=== PATIENT | male | born 1945 | race Caucasian/White ===

== ENCOUNTER → 2023-04-02 10:30 | Outpatient (REF) | payer MEDICARE, SELFPAY ==
[2023-04-02 12:30] LABS: PSA, Total - Diagnostic < 0.06 ng/ml (0.0-4.0)
[2023-04-02 12:58] LABS: Testosterone, Total 23.8 ng/dl (72-623)
== END ==
LOC: REG 10:30
PROVIDERS: ATTENDING PHYSICIAN Radiology Radiation Oncology; FAMILY PHYSICIAN Student in an Organized Health Care Education/Training Program
DX: C61 Malignant neoplasm of prostate (principal)
CPT/HCPCS: 36415; 84153; 84403

== ENCOUNTER → 2023-05-25 15:27 | Outpatient (REF) | payer MEDICARE, SELFPAY | LOC: MRI 3T 15:27 | PROVIDERS: ATTENDING PHYSICIAN Physician Assistant; FAMILY PHYSICIAN Student in an Organized Health Care Education/Training Program | DX: N28.89 Other specified disorders of kidney and ureter (principal) | CPT/HCPCS: 74183; A9575 ==

== ENCOUNTER 2023-06-26 06:46 | Emergency (ER) | payer MEDICARE, SELFPAY ==
[2023-06-26] VITALS (25 sets, daily range): BP systolic 131–160; BP diastolic 69–99; BMI 31.2
--- NOTE | 2023-06-26 07:08 | ED.GENMED ---
History of Present Illness
General
Chief Complaint: Musculo-Skeletal Complaint
Source: patient
Time Seen by Provider: 06/26/23 07:07
Travel History
Have you had any contact with someone who has COVID-19?: No
Do you have any symptoms of coronavirus? Fever > 100 degrees, chills, cough, shortness of breath, sore throat, loss of taste or smell, muscle aches, or headache?: No
History of Present Illness
History of Present Illness:
78-year-old male presents to the emergency room complaining of right shoulder pain. Patient states that he was awoken from sleep by a lower extremity cramp. When he got out of bed to try to 'work it out' he lost his balance and fell. He is
shoulder pain. He denies taking any anticoagulants. No other injuries.
Past History
Past History
ED Past Medical History: CAD (stent 2015), Cancer (prostate finihed XRT 04/22/19), HTN and Hypercholesterolemia
ED Past Surgical History: Cardiac (cath w/ stent)
Social History
Tobacco: Non-smoker
Personal:
Living: with family
Employment: Retired
Phy Exam
Physical Exam
Physical Exam:
General: Awake, Alert, Oriented X3. No acute distress.
Vitals: unremarkable
Head: Atraumatic
Eyes: Pupils equal, EOMI
Throat: Airway intact, no exudates
Neck: Trachea midline
Lungs: Clear and equal b/l
Heart: Regular rate, no murmurs
Abd: Soft, Nontender, No pulsatile mass
Neuro: Nonfocal
Skin: Warm, dry, no rash
Extremities: pulses equal b/l, deformity right shoulder which appears to be dislocated.
Course
Orders/Labs/Results
Orders:
Orders
06/26/23 07:01
Shoulder, Right, Trauma [CR Shoulder, Trauma - Right] Urgent
Comment:
Reason For Exam: fall, deformity and pain
06/26/23 07:07
HYDROmorphone [Dilaudid] 0.5 mg IV NOW STA
06/26/23 07:35
Propofol [Diprivan] 20 ml .ROUTE .STK-MED
06/26/23 09:23
CR Shoulder - Right 1 View Urgent
Reason For Exam: post reduction
Vital Signs
Initial and Last Documented VS:
Initial Vital Signs
Temp Pulse BP Pulse Ox
97.8 F 72 145/86 98
06/26/23 06:48 06/26/23 06:48 06/26/23 06:48 06/26/23 06:48
Last Documented Vital Signs
Temp Pulse Resp BP Pulse Ox
98.7 F 71 15 142/76 95
06/26/23 10:13 06/26/23 10:06 06/26/23 10:06 06/26/23 10:06 06/26/23 10:06
Procedures
Moderate Sedation
ASA Risk Score: Class II
Chart and allergies reviewed: Yes
Consent for anesthesia obtained: Yes
Time out completed (validating right patient & procedure): Yes
Moderate Sedation Start Time(when first medication is given): 19:19
History of difficult intubation: No
Airway free of obstruction: Yes
Patient has a gag reflex: Yes
Patient is able to open mouth: Yes
Patient has no dentures: Yes
Patient has no loose teeth: Yes
Medication administered by Provider during Moderate Sedation: IV Propofol (mg)
Total dose administered: 70
Time drug administered: 09:20
Moderate Sedation Procedure End Time: 09:31
Joint/Fracture Reduction
Right Shoulder:
Indication for procedure:: Dislocation
Procedure completed by: Myself
Consent form signed: Yes
Joint reduced: with anesthesia sedation
Anesthesia/sedation: Moderate sedation
Injury was: closed
Further treatement: needs re-check only
Post reduction exam: stable
Capillary Refill: normal
Normal distal neurovascular exam?: Yes
MDM/Problems Addressed
Differential Diagnosis Includes:
Humeral head dislocation, humeral head fracture, clavicular fracture
MDM/Problems Addressed:
Imaging shows patient to have a anterior dislocation of the right shoulder. Patient received procedural sedation and the joint was easily reduced. He did require a bit of bag valve mask ventilation during the sedation. Patient awoke without any
difficulty however. Tolerating oral intake and ambulated without assistance and so was deemed stable for discharge.
*Critical Care Note
Total Time (30-74mins, 75-104mins- exclusive of procedures): Not Applicable
ED Attending Note
-
Portions of this chart may have been created with voice recognition software.� Occasional wrong word or��sound alike� substitutions may have occurred due to the inherent limitations of voice recognition software.
Discharge Plan
Departure
Patient Disposition: Home (Routine Discharge)
Date of Disposition: 06/26/23
Time of Disposition: 10:12
Patient with high blood pressure during this ER visit?: Yes
Condition: Good
Discharge Problem:
Anterior shoulder dislocation
Instructions: Shoulder Dislocation (DC), Procedural Sedation, Adult ED
Prescriptions:
No Action
atenolol 100 MG tablet
100 mg PO DAILY
amlodipine 10 MG tablet
10 mg PO DAILY
valsartan [Diovan] 320 MG tablet
320 mg PO DAILY
fenofibrate nanocrystallized 145 MG tablet
145 mg PO DAILY
omega-3 fatty acids-fish oil 1 EACH capsule
2 cap PO DAILY
potassium gluconate 99 MG tablet
595 mg PO DAILY
[id number] [Centrum Silver Ultra Men's] 1 EACH tablet
1 tab PO DAILY
GLUCOSAMINE SULFATE
Patient Comments:
patient states he takes connect all glucosamine sulfate 610 mg two a day
LUTEIN
Patient Comments:
patient states he takes lutein with bilberry extrct 366 mg once daily
aspirin [Adult Low Dose Aspirin] 81 MG tablet,delayed release (DR/EC)
81 mg PO DAILY
clopidogrel 75 MG tablet
75 mg PO DAILY Qty: 90 3RF
atorvastatin 20 MG tablet
20 mg PO QPM Qty: 90 3RF
nitroglycerin 0.4 MG tablet, sublingual
0.4 mg sublingual [id number] PRN (Reason: chest pain) Qty: 25 2RF
ondansetron 4 MG tablet,disintegrating
4 mg PO [id number] PRN (Reason: nausea/vomiting) Qty: 6 0RF
Referrals:
Tristen Johnson MD [Active] -
Xochilt Louise MD [Family Provider] -
Interventions
Interventions:
*Risk Screen - Suicide Last Done: 06/26/23 06:48
*General Assessment Last Done: 06/26/23 06:48
*Neglect/Abuse Screening Last Done: 06/26/23 06:48
ED-Musculoskeletal Assessment Last Done: 06/26/23 07:40
Discharge Date and Time
Print Language: [place]
[2023-06-26] MEDS: DILAUDID 0.5 MG IV (07:14)
== END 2023-06-26 11:10 | disposition home or self-care (01) ==
LOC: EMR 06:46
PROVIDERS: EMERGENCY PHYSICIAN Emergency Medicine; FAMILY PHYSICIAN Student in an Organized Health Care Education/Training Program
DX: S43.084A Other dislocation of right shoulder joint, initial encounter (principal); W18.30XA Fall on same level, unspecified, initial encounter; I25.10 Atherosclerotic heart disease of native coronary artery without angina pectoris; I10 Essential (primary) hypertension; E78.00 Pure hypercholesterolemia, unspecified; Z95.5 Presence of coronary angioplasty implant and graft; Z85.46 Personal history of malignant neoplasm of prostate; Z79.82 Long term (current) use of aspirin
CPT/HCPCS: 99285; 23650; 96374; 99152; 73020; 73030

== ENCOUNTER → 2023-10-05 11:40 | Outpatient (REF) | payer MEDICARE, SELFPAY ==
[2023-10-05 15:42] LABS: ALT (SGPT) 111 U/L (0-50); AST (SGOT) 103 U/L (17-59); Albumin 4.7 g/dl (3.5-5.0); Alkaline Phosphatase 47 U/L (38-126); Blood Urea Nitrogen 28 mg/dl (9-20); Calcium 10.2 mg/dl (8.4-10.2); Carbon Dioxide 30 mmol/L (22-30); Chloride 103 mmol/L (98-107); Glucose 101 mg/dl (70-99); HDL Cholesterol 29 mg/dl; LDL Cholesterol, Calculated 65 mg/dl; Potassium 5.4 mmol/L (3.5-5.1); Sodium 144 mmol/L (135-145); Total Bilirubin 0.5 mg/dl (0.2-1.3); Total Cholesterol 143 mg/dl (50-199); Total Protein 6.8 g/dl (6.3-8.2); Triglyceride 246 mg/dl (10-149); Very Low Density Lipoprotein 49 mg/dl (0-30); eGFR 51.13
[2023-10-05 16:12] LABS: PSA, Total - Diagnostic < 0.06 ng/ml (0.0-4.0); Testosterone, Total 34.1 ng/dl (72-623)
== END ==
LOC: REG 11:40
PROVIDERS: ATTENDING PHYSICIAN Radiology Radiation Oncology; FAMILY PHYSICIAN Student in an Organized Health Care Education/Training Program; REFERRING PHYSICIAN Nurse Practitioner
DX: C61 Malignant neoplasm of prostate (principal); I10 Essential (primary) hypertension
CPT/HCPCS: 36415; 80053; 80061; 84153; 84403

== ENCOUNTER → 2023-10-19 10:36 | Outpatient (REF) | payer MEDICARE, SELFPAY ==
[2023-10-19 13:17] LABS: Albumin 4.7 g/dl (3.5-5.0); Blood Urea Nitrogen 33 mg/dl (9-20); Calcium 10.1 mg/dl (8.4-10.2); Carbon Dioxide 26 mmol/L (22-30); Chloride 101 mmol/L (98-107); Glucose 106 mg/dl (70-99); Phosphorus 3.8 mg/dl (2.5-4.5); Potassium 4.7 mmol/L (3.5-5.1); Sodium 145 mmol/L (135-145); eGFR 55.88
== END ==
LOC: REG 10:36
PROVIDERS: ATTENDING PHYSICIAN Nurse Practitioner; FAMILY PHYSICIAN Student in an Organized Health Care Education/Training Program
DX: I10 Essential (primary) hypertension (principal)
CPT/HCPCS: 36415; 80069

== ENCOUNTER → 2023-11-23 09:17 | Outpatient (REF) | payer MEDICARE, SELFPAY ==
[2023-11-23 10:27] LABS: % Basophils 0.8 % (0-2); % Eosinophils 6.1 % (0-6); % Immature Granulocytes 0.6 % (0-0.5); % Lymphocytes 10.5 % (20.5-51.1); % Monocytes 13.8 % (1.7-9.3); % Neutrophils 68.2 % (42.2-75.2); Absolute Eosinophils 0.3 10^3/uL (0-0.7); Absolute Lymphocytes 0.5 10^3/uL (1.2-3.4); Absolute Monocytes 0.7 10^3/uL (0.1-0.6); Absolute Neutrophils 3.5 10^3/uL (1.4-6.5); Hematocrit 42.3 % (39.0-52.0); Hemoglobin 14.2 g/dL (13.0-18.0); Mean Corp Hgb Conc. 33.6 g/dL (33.0-37.0); Mean Corpuscular Hgb 31.5 pg (27.0-31.0); Mean Corpuscular Volume 93.8 fL (80.0-94.0); Mean Platelet Volume 10.6 fL (7.4-10.4); Nucleated Red Blood Cells % 0 % (-); Platelet Count 222 10^3/uL (130-400); Red Blood Cell Count 4.51 10^6/uL (4.70-6.10); Red Cell Dist. Width 12.5 % (11.5-14.5); White Blood Cell Count 5.1 10^3/uL (4.8-10.8)
[2023-11-23 10:50] LABS: Blood Urea Nitrogen 34 mg/dl (9-20); Calcium 10.3 mg/dl (8.4-10.2); Carbon Dioxide 29 mmol/L (22-30); Chloride 100 mmol/L (98-107); Glucose 114 mg/dl (70-99); Potassium 4.9 mmol/L (3.5-5.1); Sodium 142 mmol/L (135-145); eGFR 47.06
== END ==
LOC: REG 09:17
PROVIDERS: ATTENDING PHYSICIAN Urology; FAMILY PHYSICIAN Student in an Organized Health Care Education/Training Program
DX: N28.89 Other specified disorders of kidney and ureter (principal)
CPT/HCPCS: 36415; 80048; 85025

== ENCOUNTER → 2024-03-21 10:57 | Outpatient (REF) | payer MEDICARE, SELFPAY ==
[2024-03-21 11:51] LABS: % Basophils 0.6 % (0-2); % Immature Granulocytes 0.8 % (0-0.5); % Lymphocytes 11.2 % (20.5-51.1); % Monocytes 10.5 % (1.7-9.3); % Neutrophils 72.9 % (42.2-75.2); Absolute Eosinophils 0.2 10^3/uL (0-0.7); Absolute Lymphocytes 0.5 10^3/uL (1.2-3.4); Absolute Monocytes 0.5 10^3/uL (0.1-0.6); Absolute Neutrophils 3.5 10^3/uL (1.4-6.5); Hematocrit 42.9 % (39.0-52.0); Mean Corp Hgb Conc. 32.6 g/dL (33.0-37.0); Mean Corpuscular Hgb 30.6 pg (27.0-31.0); Mean Corpuscular Volume 93.9 fL (80.0-94.0); Mean Platelet Volume 10.4 fL (7.4-10.4); Nucleated Red Blood Cells % 0 % (-); Platelet Count 213 10^3/uL (130-400); Red Blood Cell Count 4.57 10^6/uL (4.70-6.10); Red Cell Dist. Width 12.4 % (11.5-14.5); White Blood Cell Count 4.8 10^3/uL (4.8-10.8)
[2024-03-21 13:26] LABS: Blood Urea Nitrogen 32 mg/dl (9-20); Calcium 10.1 mg/dl (8.4-10.2); Carbon Dioxide 27 mmol/L (22-30); Chloride 100 mmol/L (98-107); Glucose 115 mg/dl (70-99); Potassium 4.8 mmol/L (3.5-5.1); Sodium 140 mmol/L (135-145); eGFR 55.88
[2024-03-21 17:19] LABS: PSA, Total - Diagnostic < 0.06 ng/ml (0.0-4.0)
[2024-03-21 17:22] LABS: Testosterone, Total 42.9 ng/dl (72-623)
== END ==
LOC: REG 10:57
PROVIDERS: ATTENDING PHYSICIAN Urology; FAMILY PHYSICIAN Student in an Organized Health Care Education/Training Program; REFERRING PHYSICIAN Radiology Radiation Oncology
DX: N28.89 Other specified disorders of kidney and ureter (principal); C61 Malignant neoplasm of prostate
CPT/HCPCS: 36415; 80048; 84153; 84403; 85025

== ENCOUNTER → 2024-05-21 10:45 | Outpatient (REF) | payer MEDICARE, SELFPAY ==
[2024-05-21 11:53] LABS: Blood Urea Nitrogen 28 mg/dl (9-20); Calcium 10.3 mg/dl (8.4-10.2); Carbon Dioxide 31 mmol/L (22-30); Chloride 103 mmol/L (98-107); Glucose 116 mg/dl (70-99); Potassium 4.8 mmol/L (3.5-5.1); Sodium 142 mmol/L (135-145); eGFR > 60.00
== END ==
LOC: REG 10:45
PROVIDERS: ATTENDING PHYSICIAN Physician Assistant; FAMILY PHYSICIAN Student in an Organized Health Care Education/Training Program
DX: N28.89 Other specified disorders of kidney and ureter (principal)
CPT/HCPCS: 36415; 80048

== ENCOUNTER → 2024-06-11 10:09 | Outpatient (REF) | payer MEDICARE, SELFPAY | LOC: WDC 10:09 | PROVIDERS: ATTENDING PHYSICIAN Radiology Radiation Oncology; FAMILY PHYSICIAN Student in an Organized Health Care Education/Training Program | DX: N64.4 Mastodynia (principal); N63.10 Unspecified lump in the right breast, unspecified quadrant; N63.41 Unspecified lump in right breast, subareolar | CPT/HCPCS: 76642; 77062; 77066 ==

== ENCOUNTER → 2024-11-15 08:50 | Outpatient (REF) | payer MEDICARE, SELFPAY ==
[2024-11-15 11:37] LABS: Blood Urea Nitrogen 28 mg/dl (9-20); Calcium 9.9 mg/dl (8.4-10.2); Carbon Dioxide 29 mmol/L (22-30); Chloride 103 mmol/L (98-107); Glucose 118 mg/dl (70-99); Potassium 4.9 mmol/L (3.5-5.1); Sodium 140 mmol/L (135-145); eGFR 50.81
[2024-11-15 13:06] LABS: PSA, Total - Diagnostic < 0.06 ng/ml (0.0-4.0)
== END ==
LOC: REG 08:50
PROVIDERS: ATTENDING PHYSICIAN Physician Assistant; FAMILY PHYSICIAN Student in an Organized Health Care Education/Training Program
DX: C61 Malignant neoplasm of prostate (principal); N28.89 Other specified disorders of kidney and ureter
CPT/HCPCS: 36415; 80048; 84153